=== PATIENT | female | born 1945 | race Caucasian/White ===

== ENCOUNTER 2023-07-26 04:15 | Day surgery (SDC) | payer OTHER ==
[2023-07-19 12:55] VITALS: BMI 28.5
[2023-07-26 08:23] VITALS: RESP 18
[2023-07-26] MEDS ORDERED: MIDAZOLAM HCL 2 MG/2 ML SINGLE DOSE VIAL ONE (09:10)
[2023-07-26 11:13] VITALS: BP 131/70; PULSE 68; TEMP 97
== END 2023-07-26 11:15 | disposition home or self-care (01) ==
LOC: JASU-SURG 04:15
PROVIDERS: ATTEND Urology
PROC: 0TF3XZZ Fragmentation in Right Kidney Pelvis, External Approach (ICD-10-PCS; principal; 2023-07-26 09:30)
DX: N20.0 Calculus of kidney (principal)